=== PATIENT | male | born 1970 | race Caucasian/White ===

== ENCOUNTER 2019-09-07 18:41 | Emergency (ER) | payer OTHER ==
[~2019-09-07] VITALS: Ht 177.8 cm; Wt 78.0 kg
[2019-09-07] MEDS ORDERED: DOXYCYCLINE150 MG (19:05)
[2019-09-07] MEDS ORDERED: ROXICODONE5 MG (19:06)
[2019-09-07] MEDS ORDERED: TAMS0.4C (19:06)
[2019-09-07] MEDS ORDERED: ZESTRIL10 M1 (19:06)
[2019-09-08] MEDS ORDERED: KETO10TA2 PO (05:11)
== END 2019-09-08 05:15 ==
LOC: ER 18:41
DX: N20.0 Calculus of kidney (principal)